=== PATIENT | male | born 1980 ===

== ENCOUNTER 2020-11-28 07:16 | Emergency (ER) | payer OTHER ==
--- NOTE | 2020-11-28 07:38 | EDM.PDOC ---
ED HPI GENERAL MEDICAL PROBLEM - General Stated Complaint: ROLLED ANKLE Time Seen by Provider: 11/28/20 07:32 Source of Information: Reports: Patient, Family (), RN, RN Notes Reviewed History Limitations: Reports: No Limitations - History of Present Illness INITIAL COMMENTS - FREE TEXT/NARRATIVE: Toby is a 40 y/o male who presents to the ED via personal vehicle with for complaints of left lateral ankle pain. The patient reports he injured his ankle while stepping out of a rover vehicle yesterday. He notes his foot internally rotated and he heard a "...pop." He states he has attempted to walk-off the pain but he has noted the swelling and tenderness has progressively worsened. He has not taken any analgesics or utilized any supportive cares for this injury. He denies history of injury to the affected extremity. He denies loss of motor or sensory function to the left lower leg. Left Ankle Pain Score (Numeric/FACES): 6 - Related Data Allergies Allergy/AdvReac Type Severity Reaction Status Date / Time Penicillins Allergy Rash Verified 11/28/20 07:32 Home Meds: Home Meds . [No Known Home Meds] 11/28/20 [History] Review of Systems - Review of Systems Review Of Systems: Comprehensive ROS is negative, except as noted in HPI. ED EXAM, GENERAL - Physical Exam Exam: See Below Exam Limited By: No Limitations General Appearance: Alert, No Apparent Distress Peripheral Pulses: 2+: Posterior Tibial (L), Dorsalis Pedis (L) Extremities: No Pedal Edema, Normal Capillary Refill, Joint Swelling (To left lateral ankle ), Leg Pain (To left lateral ankle), Limited Range of Motion (Appropriate flexion, pain with extension of the left ankle) Neurological: Alert, Oriented, CN II-XII Intact, Normal Cognition, Normal Gait, No Motor/Sensory Deficits Psychiatric: Normal Affect, Normal Mood Skin Exam: Warm, Dry, Intact, No Rash, Erythema (Faint to left lateral ankle). No: Ecchymosis, Jaundice, Mottled, Pallor, Petechiae Course - Vital Signs Last Recorded V/S: Last Vital Signs Temp 98.4 F 11/28/20 07:27 Pulse 81 11/28/20 07:27 Resp 18 11/28/20 07:27 BP 132/82 11/28/20 07:27 Pulse Ox 97 11/28/20 07:27 - Radiology Interpretation Free Text/Narrative:: [facility] [place] [facility] Final Radiology Report Call: [phone] assistance Online chat: [email or web address] Name: TOBY BUNDY Age: 40Years M Date: 11/28/2020 SSN: -- : 1980 Study: CR ANKLE 2V LT Requesting Physician: Aleshia Reid Images: 2 Addl Studies: Provided Clinical History: r/o fracture or dislocation Contrast: Contrast Medium: Contrast Amount: Contrast Method: CONFIDENTIALITY STATEMENT This report is intended only for use by the referring physician, and only in accordance with law. If you received this in error, call [phone]. Page 1 of 1 PROCEDURE INFORMATION: Exam: XR Left Ankle Exam date and time: 11/28/2020 7:38 AM Age: 40 years old Clinical indication: Injury or trauma; Other: Rolled ankle getting out of vehicle yesterday; Swelling (edema); Left; Additional info: R/O fracture or dislocation TECHNIQUE: Imaging protocol: XR Left ankle. Views: 1 or 2 views. COMPARISON: No relevant prior studies available. FINDINGS: Bones/joints: There is no evidence of acute fracture or dislocation. No significant narrowing of the joint spaces. No lytic or blastic lesions. Soft tissues: There is soft tissue swelling appreciated. No radiopaque foreign body within the soft tissues. IMPRESSION: No acute findings appreciated. Thank you for allowing us to participate in the care of your patient. Dictated and Authenticated by: Smith Caldwell MD 11/28/2020 8:05 AM Central Time ([place] & [place]) - Re-Assessments/Exams Free Text/Narrative Re-Assessment/Exam: 11/28/20 Xray of ankle negative for acute processes; no evidence of fracture or dislocation. Discussed supportive cares for ankle sprain as well as red flag s igns and symptoms which would warrant reevaluation. Patient and verbalized understanding and agreement with the plan of care. Departure - Departure Time of Disposition: 08:06 Disposition: Home, Self-Care 01 Condition: Good Clinical Impression: Left ankle sprain Qualifiers: Encounter type: initial encounter Involved ligament of ankle: unspecified ligament Qualified Code(s): S93.402A - Sprain of unspecified ligament of left ankle, initial encounter - Discharge Information *PRESCRIPTION DRUG MONITORING PROGRAM REVIEWED*: Not Applicable *COPY OF PRESCRIPTION DRUG MONITORING REPORT IN PATIENT KRYSTAL: Not Applicable Instructions: Ankle Sprain, [id number] Forms: ED Department Discharge Additional Instructions: 1.) You may take ibuprofen (Advil/Motrin) 400mg every six hours, as pain and swelling persists. You may also take acetaminophen (Tylenol) 650mg every six hours, as pain persists. You may stagger these medications so you are receiving a dose every three hours. 2.) You may alternate ice/heat to the affected area; 20 minutes every hours, while awake. 3.) You may apply compression to the joint for comfort, as swelling and pain persist. Sepsis Event Note (ED) - Evaluation Sepsis Screening Result: No Definite Risk - Focused Exam Vital Signs: Vital Signs Temp Pulse Resp BP Pulse Ox 11/28/20 07:27 98.4 F 81 18 132/82 97
--- NOTE | 2020-11-28 08:05 | CR ---
PROCEDURE INFORMATION: Exam: XR Left Ankle Exam date and time: 11/28/2020 7:38 AM Age: 40 years old Clinical indication: Injury or trauma; Other: Rolled ankle getting out of vehicle yesterday; Swelling (edema); Left; Additional info: R/O fracture or dislocation TECHNIQUE: Imaging protocol: XR Left ankle. Views: 1 or 2 views. COMPARISON: No relevant prior studies available. FINDINGS: Bones/joints: There is no evidence of acute fracture or dislocation. No significant narrowing of the joint spaces. No lytic or blastic lesions. Soft tissues: There is soft tissue swelling appreciated. No radiopaque foreign body within the soft tissues. IMPRESSION: No acute findings appreciated.
== END 2020-11-28 08:18 | disposition home or self-care (01) ==
LOC: DL.ED 07:16
DX: S93.402A Sprain of unspecified ligament of left ankle, initial encounter (principal); Z88.0 Allergy status to penicillin; W22.8XXA Striking against or struck by other objects, initial encounter
CPT/HCPCS: 73600-LT; 99282; 99283-25